=== PATIENT | male | born 1935 | race Two or more races ===

== ENCOUNTER 2018-04-03 08:45 | Outpatient (CLI) | payer OTHER ==
[~2018-04-03 08:45] MED LIST: ALTACE2.5 MG; FORTAMET500 MG; GALANTAMINE HBR8 MG; JANUVIA100 MG; KEPPRA500 MG; NAMENDA10 MG
== END 2018-04-03 09:46 | disposition home or self-care (01) ==
LOC: SONOGRAMA 08:45
DX: R31.9 Hematuria, unspecified (principal); N30.00 Acute cystitis without hematuria; N40.1 Benign prostatic hyperplasia with lower urinary tract symptoms

== ENCOUNTER 2018-04-03 09:33 | Outpatient (CLI) | payer OTHER | END 2018-04-03 09:37 | disposition home or self-care (01) | LOC: LAB 09:33 | DX: N30.00 Acute cystitis without hematuria (principal); N40.1 Benign prostatic hyperplasia with lower urinary tract symptoms; R82.79 Other abnormal findings on microbiological examination of urine ==

== ENCOUNTER 2018-05-26 11:00 | Outpatient (CLI) | payer OTHER | END 2018-05-26 11:07 | disposition home or self-care (01) | LOC: LAB 11:00 | DX: E11.9 Type 2 diabetes mellitus without complications (principal) ==

== ENCOUNTER 2018-06-15 15:08 | Outpatient (CLI) | payer OTHER | END 2018-06-15 15:14 | disposition home or self-care (01) | LOC: LAB 15:08 | DX: N30.00 Acute cystitis without hematuria (principal) ==

== ENCOUNTER 2018-07-09 09:45 | Outpatient (CLI) | payer OTHER | END 2018-07-09 10:13 | disposition home or self-care (01) | LOC: LAB 09:45 | DX: E11.39 Type 2 diabetes mellitus with other diabetic ophthalmic complication (principal); I15.8 Other secondary hypertension; D68.32 Hemorrhagic disorder due to extrinsic circulating anticoagulants; D68.8 Other specified coagulation defects ==

== ENCOUNTER 2018-07-09 11:28 | Outpatient (CLI) | payer OTHER | END 2018-07-09 16:33 | disposition home or self-care (01) | LOC: RAD 11:28 | DX: I15.8 Other secondary hypertension (principal); I10 Essential (primary) hypertension ==

== ENCOUNTER 2018-12-08 11:33 | Outpatient (CLI) | payer OTHER | END 2018-12-08 11:38 | disposition home or self-care (01) | LOC: LAB 11:33 | DX: I10 Essential (primary) hypertension (principal); E11.9 Type 2 diabetes mellitus without complications; N30.00 Acute cystitis without hematuria; N40.1 Benign prostatic hyperplasia with lower urinary tract symptoms ==

== ENCOUNTER 2018-12-08 12:21 | Outpatient (CLI) | payer OTHER | END 2018-12-08 15:54 | disposition home or self-care (01) | LOC: RAD 12:21 | DX: G40.209 Localization-related (focal) (partial) symptomatic epilepsy and epileptic syndromes with complex partial seizures, not intractable, without status epilepticus (principal); G30.1 Alzheimer's disease with late onset; I69.898 Other sequelae of other cerebrovascular disease; M51.16 Intervertebral disc disorders with radiculopathy, lumbar region; M47.812 Spondylosis without myelopathy or radiculopathy, cervical region; M16.12 Unilateral primary osteoarthritis, left hip ==

== ENCOUNTER 2018-12-13 12:13 | Outpatient (CLI) | payer OTHER ==
[~2018-12-13] VITALS: Ht 177.8 cm; Wt 75.3 kg
== END 2018-12-13 12:30 | disposition home or self-care (01) ==
LOC: OFIC 805 12:13
DX: R13.19 Other dysphagia (principal); H61.23 Impacted cerumen, bilateral; H90.3 Sensorineural hearing loss, bilateral

== ENCOUNTER 2018-12-28 08:40 | Outpatient (CLI) | payer OTHER | END 2018-12-28 09:33 | disposition home or self-care (01) | LOC: RX STUDY 08:40 | DX: R22.1 Localized swelling, mass and lump, neck (principal); R13.13 Dysphagia, pharyngeal phase ==

== ENCOUNTER 2019-01-17 11:02 | Outpatient (CLI) | payer OTHER ==
[~2019-01-17] VITALS: Ht 152.4 cm; Wt 70.8 kg
== END 2019-01-17 11:20 | disposition home or self-care (01) ==
LOC: OFIC 805 11:02
DX: R13.19 Other dysphagia (principal); R22.1 Localized swelling, mass and lump, neck

== ENCOUNTER 2019-02-01 11:39 | Outpatient (CLI) | payer OTHER | END 2019-02-01 11:43 | disposition home or self-care (01) | LOC: LAB 11:39 | DX: N30.00 Acute cystitis without hematuria (principal); R97.20 Elevated prostate specific antigen [PSA] ==

== ENCOUNTER 2019-03-14 16:04 | Outpatient (CLI) | payer OTHER ==
[~2019-03-14] VITALS: Ht 152.4 cm; Wt 70.8 kg
== END 2019-03-14 16:20 | disposition home or self-care (01) ==
LOC: OFIC 805 16:04
DX: R13.19 Other dysphagia (principal); R22.1 Localized swelling, mass and lump, neck; H91.90 Unspecified hearing loss, unspecified ear

== ENCOUNTER 2020-10-09 11:20 | Emergency (ER) | payer OTHER ==
[~2020-10-09] VITALS: Ht 180.3 cm; Wt 76.2 kg
== END 2020-10-09 22:22 | disposition home or self-care (01) ==
LOC: ER 11:20
DX: R53.1 Weakness (principal); B96.0 Mycoplasma pneumoniae [M. pneumoniae] as the cause of diseases classified elsewhere; R13.19 Other dysphagia; E86.0 Dehydration; Z20.822 Contact with and (suspected) exposure to COVID-19; G30.8 Other Alzheimer's disease; F02.80 Dementia in other diseases classified elsewhere, unspecified severity, without behavioral disturbance, psychotic disturbance, mood disturbance, and anxiety

== ENCOUNTER 2020-10-10 16:04 | Emergency (ER) | payer OTHER ==
[~2020-10-10] VITALS: Ht 170.2 cm; Wt 72.6 kg
== END 2020-10-10 23:20 | disposition home or self-care (01) ==
LOC: ER 16:04
DX: U07.1 COVID-19 (principal); R13.19 Other dysphagia; G30.8 Other Alzheimer's disease; F02.80 Dementia in other diseases classified elsewhere, unspecified severity, without behavioral disturbance, psychotic disturbance, mood disturbance, and anxiety